=== PATIENT | female | born 1955 | race Caucasian/White ===

== ENCOUNTER 2024-04-26 12:16 | Day surgery (SDC) | payer OTHER, SELFPAY ==
[2024-04-23 08:20] VITALS: BMI 25.3
[2024-04-23 09:03] LABS: % Basophils 0.6 % (0-2); % Eosinophils 1.9 % (0-6); % Immature Granulocytes 0.4 % (0-0.5); % Lymphocytes 25.2 % (20.5-51.1); % Monocytes 7.4 % (1.7-9.3); % Neutrophils 64.5 % (42.2-75.2); Absolute Eosinophils 0.1 10^3/uL (0-0.7); Absolute Lymphocytes 1.8 10^3/uL (1.2-3.4); Absolute Monocytes 0.5 10^3/uL (0.1-0.6); Absolute Neutrophils 4.6 10^3/uL (1.4-6.5); Hematocrit 43.6 % (37.0-47.0); Hemoglobin 14.8 g/dL (12.0-16.0); Mean Corp Hgb Conc. 33.9 g/dL (33.0-37.0); Mean Corpuscular Hgb 30.1 pg (27.0-31.0); Mean Corpuscular Volume 88.8 fL (81.0-99.0); Mean Platelet Volume 10.6 fL (7.4-10.4); Nucleated Red Blood Cells % 0 %; Platelet Count 255 10^3/uL (130-400); Red Blood Cell Count 4.91 10^6/uL (4.20-5.40); Red Cell Dist. Width 12.8 % (11.5-14.5); White Blood Cell Count 7.2 10^3/uL (4.8-10.8)
[2024-04-23 09:12] LABS: INR 0.98; PT 12.8 Sec (11.4-14.6)
[2024-04-23 09:41] LABS: ALT (SGPT) 26 U/L (0-35); AST (SGOT) 21 U/L (14-36); Albumin 3.9 g/dl (3.5-5.0); Alkaline Phosphatase 63 U/L (38-126); Blood Urea Nitrogen 17 mg/dl (7-17); Calcium 9.6 mg/dl (8.4-10.2); Carbon Dioxide 27 mmol/L (22-30); Chloride 104 mmol/L (98-107); Estimated Creatinine Clearance 71 ml/min; Glucose 115 mg/dl (70-99); Magnesium 2.1 mg/dl (1.6-2.3); Potassium 4.6 mmol/L (3.5-5.1); Sodium 140 mmol/L (135-145); Total Bilirubin 0.9 mg/dl (0.2-1.3); Total Protein 6.5 g/dl (6.3-8.2); eGFR > 60.00
[2024-04-26 12:47] VITALS: BP 138/56
[2024-04-26 12:49] VITALS: BP 138/56
[2024-04-26 13:01] VITALS: BMI 25.0
[2024-04-26] MEDS: TYLENOL 650 MG PO (16:54)
[2024-04-26 16:57] VITALS: BP 131/58
--- NOTE | 2024-04-26 16:58 | ITS.CL.PACE ---
[employer] Salesperson - Pacemaker Implant
Pacemaker Implant
Procedure Report:
[employer] Sales Consultant: Wood Mcclain MD
Procedure Date: 04/26/2024
Name of procedure:
1. Device Revision: Dual Chamber Pacemaker
2. Pulse Generator Change
History:
See H&P for full details.
Patient is a pleasant 68-year-old female with a past medical history of nonobstructive CAD SVT nonsustained VT complete heart block status post dual-chamber Medtronic pacemaker left-sided can extracted(leads capped) reimplanted right-sided
subpectoral roughly 10 years ago, hypertension, dyslipidemia, metabolic syndrome, history of remote CVA, history of breast cancer left-sided who presents for elective generator change due to [employer]IJ[employer] ORE.
Methods:
After informed consent was obtained, the patient was brought to the EP laboratory in a postabsorptive, nonsedated state. Peripheral IV access was established. Prophylactic antibiotics were administered prior to incision. Continues ECG, blood
pressure, and pulse oximetry were initiated. Cardioversion patch electrodes were placed on the patient's chest and back. A grounding patch was applied to the skin. Sedation was administered by anesthesia.
The right chest was prepared and draped in a sterile fashion. A 'time out' was called. Local anesthesia was injected in the subcutaneous tissue in the infraclavicular area. An incision was made into the chronic scar. With cautious attention to
the leads, the subcutaneous tissue and through chronic scar carefully dissected through muscular tissue ultimately dissected the level of the device capsule. The capsule was opened, the device was explanted and disconnected from the leads. The
leads were inspected and found to be free of visible defect. The leads were tested and found to have adequate pacing and sensing parameters, consistent with pre-procedure measurements.
The pocket was flushed with antibiotic solution and hemostasis was assured. Surgiflo was applied. Antibiotic envelope was used. The generator was connected to the leads and placed inside the pocket. The wound was closed with 3 running layers of
absorbable suture and steri-strips were applied to the skin.
Following the procedure, the patient was taken to the recovery area in stable condition. No complications were noted.
Lead parameters and device programming:
- RA Lead (Medtronic, model: 5076, SN#[id number]): Sensing 1.5 mV, Pacing threshold 1.25 V at 0.4 ms, Imp 361 ohm
- RV Lead (Medtronic, model: 5076, SN#[id number]): dependent, Pacing threshold 1.0 V at 0.4 ms, Imp 494 ohm
- Device: Medtronic pacemaker model: W1 , [id number], programmed DDD mode switch on lower rate 60, upper tracking rate 130; return to previous settings
- Explanted device: A2 Medtronic [id number]
Recommendations:
1. Discharge home when stable with instructions for site care
2. Follow-up will be arranged in our office 7-10 days post-discharge for incision check
Fernando Flores,
Clinical Cardiac Electrophysiology
Copy to: Wood Mcclain MD; Matt Macdonald MD
[2024-04-26 17:12] VITALS: BP 144/63
[2024-04-26 17:27] VITALS: BP 151/67
[2024-04-26 17:42] VITALS: BP 151/64
== END 2024-04-26 18:05 | disposition home or self-care (01) ==
LOC: CATH 12:16
PROVIDERS: ATTENDING PHYSICIAN Internal Medicine Cardiovascular Disease; FAMILY PHYSICIAN Family Medicine; OTHER PHYSICIAN Internal Medicine Cardiovascular Disease
DX: Z45.010 Encounter for checking and testing of cardiac pacemaker pulse generator [battery] (principal); I44.2 Atrioventricular block, complete; I10 Essential (primary) hypertension; E78.5 Hyperlipidemia, unspecified; I25.10 Atherosclerotic heart disease of native coronary artery without angina pectoris; Z86.73 Personal history of transient ischemic attack (TIA), and cerebral infarction without residual deficits; Z85.3 Personal history of malignant neoplasm of breast; Z79.02 Long term (current) use of antithrombotics/antiplatelets
CPT/HCPCS: 33228; 36415; 80053; 83735; 85025; 85610; 93005; C1785